=== PATIENT | male | born 1965 | race Caucasian/White ===

== ENCOUNTER 2020-05-18 10:21 | Inpatient (IN) | payer MEDICAID ==
[~2020-05-18] VITALS: Ht 180.3 cm; Wt 83.5 kg
[2020-05-18] MEDS ORDERED: HALO5TAB2 PO (12:47)
[2020-05-18] MEDS ORDERED: GABA-1181 PO (12:47)
[2020-05-18] MEDS ORDERED: QUET200T PO (12:47)
[2020-05-18] MEDS ORDERED: QUET25TA PO (12:47)
[2020-05-18] MEDS ORDERED: BENZ1TAB10 PO (12:47)
[2020-05-18] MEDS ORDERED: BUPR75 PO (12:48)
[2020-05-18 13:42] LABS: BASOPHILS % (AUTO) 0.5 % (0.0-2.0); EOSINOPHILS % (AUTO) 3.2 % (1.0-6.0); HEMATOCRIT 40.7 % (41-53); HEMOGLOBIN 13.8 g/dL (13.5-17.5); LYMPHOCYTES # (AUTO) 2.5 K/uL (1.0-4.8); LYMPHOCYTES % (AUTO) 38.8 % (22.0-44.0); MEAN CORPUSCULAR VOLUME 94 fL (80-100); MONOCYTES # (AUTO) 0.7 K/uL (0.1-1.0); NEUTROPHILS % (AUTO) 46.5 % (40.0-70.0); PLATELET COUNT (AUTO) 151 K/uL (150-450); RED BLOOD CELL COUNT(AUTO) 4.33 MIL/uL (4.50-5.90); RED CELL DISTRIBUTION WIDTH 13.1 % (11.5-14.5)
[2020-05-18 13:58] LABS: COVID AG,FIA SOURCE NASOPHARYNGEAL
[2020-05-18 14:05] LABS: AMPHET/METH SCREEN,URINE POSITIVE (NEGATIVE); BARBITURATE SCREEN, URINE NEGATIVE (NEGATIVE); BENZODIAZEPINES SCREEN,URINE NEGATIVE (NEGATIVE); CANNABINOID SCREEN,URINE POSITIVE (NEGATIVE); COCAINE SCREEN,URINE NEGATIVE (NEGATIVE); METHADONE SCREEN, URINE NEGATIVE (NEGATIVE); OPIATE SCREEN,URINE NEGATIVE (NEGATIVE)
[2020-05-18 14:08] LABS: PHENCYCLIDINE SCREEN,URINE NEGATIVE (NEGATIVE)
[2020-05-18 14:12] LABS: ANION GAP 7 mmol/L (8-16); CALCIUM, TOTAL 8.3 mg/dL (8.8-10.5); CARBON DIOXIDE 27 mmol/L (22-29); CHLORIDE 103 mmol/L (98-107); CREATININE 0.83 mg/dL (0.60-1.30); GLOMERULAR FILTR. RATE CALC > 60 mL/min (>60); GLUCOSE,RANDOM 83 mg/dL (70-110); POTASSIUM 3.3 mmol/L (3.5-5.1); SODIUM SERUM 137 mmol/L (136-145); UREA NITROGEN, BLOOD 18 mg/dL (7-18)
[2020-05-18 14:14] LABS: ALANINE AMINOTRANSFERASE 37 U/L (12-78); ALBUMIN 3.8 g/dL (3.4-5.0); ALKALINE PHOSPHATASE 75 U/L (46-116); ASPARTATE AMINOTRANSFERASE 42 U/L (15-37); BILIRUBIN,TOTAL 0.8 mg/dL (0.1-1.0); TOTAL PROTEIN, SERUM 7.4 g/dL (6.4-8.2)
[2020-05-18] MEDS ORDERED: ZOLPIDEM TARTRATE 10 MG TABLET PO PRN (17:45)
[2020-05-18] MEDS ORDERED: HALOPERIDOL 5 MG TABLET PO PRN (17:45)
[2020-05-18] MEDS ORDERED: LORazepam 2 MG TABLET PO PRN (17:45)
[2020-05-18 17:59] VITALS: BP 134/66
[2020-05-18] MEDS ORDERED: POTASSIUM CHLORIDE 20 MEQ ER TABLET PO ONE (18:00)
[2020-05-19] MEDS ORDERED: GuaiFENesin/D-METHORPHAN [SUGAR-FREE] 200-20MG/10 ML SYRUP UDCUP PO PRN (08:00)
[2020-05-19] MEDS ORDERED: ACETAMINOPHEN 325 MG TABLET PO PRN (08:00)
[2020-05-19] MEDS ORDERED: CloNIDine HCL 0.1 MG TABLET PO PRN (08:00)
[2020-05-19] MEDS ORDERED: MAGNESIUM HYDROXIDE SUSPENSION 30 ML UDCUP PO PRN (08:00)
[2020-05-19] MEDS ORDERED: PETROLATUM,WHITE 28 GM JELLY TP PRN (08:00)
[2020-05-19] MEDS ORDERED: ONDANSETRON HCL 4 MG TABLET PO PRN (08:00)
[2020-05-19] MEDS ORDERED: ALBUTEROL SULFATE HFA 90 MCG/PUFF 8 GM INHALER IH PRN (08:00)
[2020-05-19] MEDS ORDERED: DOCUSATE SODIUM 100 MG CAPSULE PO PRN (08:00)
[2020-05-19] MEDS ORDERED: NICOTINE 14 MG/24 HOUR PATCH TD PRN (08:00)
[2020-05-19] MEDS ORDERED: MAG HYDROX/AL HYDROX/SIMETH ES 30 ML SUSPENSION UDCUP PO PRN (08:00)
[2020-05-19] MEDS ORDERED: IBUPROFEN 400 MG TABLET PO PRN (08:00)
[2020-05-19 08:43] VITALS: BP 115/72
[2020-05-19] MEDS: NICOTINE 14 MG/24 HOUR PATCH TD SCH (09:18)
[2020-05-19 16:00] VITALS: BP 106/68
[2020-05-19] MEDS: QUEtiapine FUMARATE 25 MG TABLET PO SCH (16:35)
[2020-05-19] MEDS: BENZTROPINE MESYLATE 1 MG TABLET PO SCH (16:35)
[2020-05-19] MEDS: GABAPENTIN 300 MG CAPSULE PO SCH (16:35)
[2020-05-19] MEDS: QUEtiapine FUMARATE 200 MG TABLET PO SCH (20:23)
[2020-05-20 10:35] VITALS: BP 109/80
[2020-05-20] MEDS: QUEtiapine FUMARATE 25 MG TABLET PO SCH ×2 (10:58→16:19)
[2020-05-20] MEDS: GABAPENTIN 300 MG CAPSULE PO SCH ×2 (10:58→16:19)
[2020-05-20] MEDS: BuPROPion HCL XL 150 MG ER TABLET PO SCH (10:58)
[2020-05-20] MEDS: BENZTROPINE MESYLATE 1 MG TABLET PO SCH ×2 (10:58→16:20)
[2020-05-20] MEDS: NICOTINE 14 MG/24 HOUR PATCH TD SCH (10:59)
[2020-05-20 16:00] VITALS: BP 110/77
[2020-05-20] MEDS: QUEtiapine FUMARATE 200 MG TABLET PO SCH (20:16)
[2020-05-21 08:00] VITALS: BP 123/84
[2020-05-21] MEDS: GABAPENTIN 300 MG CAPSULE PO SCH ×2 (11:13→16:23)
[2020-05-21] MEDS: BENZTROPINE MESYLATE 1 MG TABLET PO SCH ×2 (11:13→16:23)
[2020-05-21] MEDS: QUEtiapine FUMARATE 25 MG TABLET PO SCH ×2 (11:13→16:23)
[2020-05-21] MEDS: NICOTINE 14 MG/24 HOUR PATCH TD SCH (11:14)
[2020-05-21] MEDS: BuPROPion HCL XL 150 MG ER TABLET PO SCH (11:14)
[2020-05-21 16:00] VITALS: BP 107/80
[2020-05-21] MEDS: QUEtiapine FUMARATE 200 MG TABLET PO SCH (20:33)
[2020-05-22 08:00] VITALS: BP 121/83
[2020-05-22] MEDS: GABAPENTIN 300 MG CAPSULE PO SCH ×2 (08:44→16:06)
[2020-05-22] MEDS: BENZTROPINE MESYLATE 1 MG TABLET PO SCH ×2 (08:44→16:06)
[2020-05-22] MEDS: QUEtiapine FUMARATE 25 MG TABLET PO SCH ×2 (08:45→16:06)
[2020-05-22] MEDS: BuPROPion HCL XL 150 MG ER TABLET PO SCH (08:45)
[2020-05-22] MEDS: NICOTINE 14 MG/24 HOUR PATCH TD SCH (08:46)
[2020-05-22 16:05] VITALS: BP 101/72
[2020-05-22] MEDS: QUEtiapine FUMARATE 200 MG TABLET PO SCH (20:49)
[2020-05-23 08:00] VITALS: BP 115/77
[2020-05-23] MEDS: QUEtiapine FUMARATE 25 MG TABLET PO SCH ×2 (08:38→16:52)
[2020-05-23] MEDS: NICOTINE 14 MG/24 HOUR PATCH TD SCH (08:39)
[2020-05-23] MEDS: BuPROPion HCL XL 150 MG ER TABLET PO SCH (08:39)
[2020-05-23] MEDS: GABAPENTIN 300 MG CAPSULE PO SCH ×2 (08:39→16:51)
[2020-05-23] MEDS: BENZTROPINE MESYLATE 1 MG TABLET PO SCH ×2 (08:40→16:51)
[2020-05-23 16:36] VITALS: BP 113/86
[2020-05-23] MEDS: QUEtiapine FUMARATE 200 MG TABLET PO SCH (20:19)
[2020-05-24 08:13] VITALS: BP 116/82
[2020-05-24] MEDS: BuPROPion HCL XL 150 MG ER TABLET PO SCH (10:45)
[2020-05-24] MEDS: GABAPENTIN 300 MG CAPSULE PO SCH ×2 (10:45→15:52)
[2020-05-24] MEDS: BENZTROPINE MESYLATE 1 MG TABLET PO SCH ×2 (10:45→15:52)
[2020-05-24] MEDS: QUEtiapine FUMARATE 25 MG TABLET PO SCH ×2 (10:46→15:52)
[2020-05-24] MEDS: NICOTINE 14 MG/24 HOUR PATCH TD SCH (10:49)
[2020-05-24 12:16] LABS: COVID AG,FIA SOURCE NASOPHARYNGEAL
[2020-05-24] MEDS: LOPERAMIDE HCL 2 MG CAPSULE PO PRN (15:52)
[2020-05-24 16:00] VITALS: BP 120/90
[2020-05-24] MEDS: QUEtiapine FUMARATE 200 MG TABLET PO SCH (20:28)
[2020-05-25] MEDS: QUEtiapine FUMARATE 25 MG TABLET PO SCH ×2 (08:01→16:12)
[2020-05-25] MEDS: GABAPENTIN 300 MG CAPSULE PO SCH ×2 (08:01→16:12)
[2020-05-25] MEDS: BuPROPion HCL XL 150 MG ER TABLET PO SCH (08:01)
[2020-05-25] MEDS: BENZTROPINE MESYLATE 1 MG TABLET PO SCH ×2 (08:01→16:12)
[2020-05-25] MEDS: NICOTINE 14 MG/24 HOUR PATCH TD SCH (08:02)
[2020-05-25 08:46] VITALS: BP 131/86
[2020-05-25 16:00] VITALS: BP 127/89
[2020-05-25 16:10] VITALS: BP 127/89
[2020-05-25] MEDS: LOPERAMIDE HCL 2 MG CAPSULE PO PRN (16:14)
[2020-05-25 16:58] LABS: COVID AG,FIA SOURCE NASOPHARYNGEAL
[2020-05-25] MEDS: QUEtiapine FUMARATE 200 MG TABLET PO SCH (20:31)
[2020-05-26] MEDS: BENZTROPINE MESYLATE 1 MG TABLET PO SCH (08:30)
[2020-05-26] MEDS: BuPROPion HCL XL 150 MG ER TABLET PO SCH (08:30)
[2020-05-26] MEDS: QUEtiapine FUMARATE 25 MG TABLET PO SCH (08:30)
[2020-05-26] MEDS: GABAPENTIN 300 MG CAPSULE PO SCH (08:30)
[2020-05-26] MEDS: NICOTINE 14 MG/24 HOUR PATCH TD SCH (08:31)
[2020-05-26] MEDS: LOPERAMIDE HCL 2 MG CAPSULE PO PRN ×2 (08:33→12:27)
[2020-05-26 09:43] VITALS: BP 99/78
[2020-05-26] MEDS ORDERED: BUPR-93 PO (12:48)
[2020-05-26] MEDS ORDERED: QUET25TA PO (12:49)
== END 2020-05-26 14:00 | disposition home or self-care (01) | DRG 750 ==
LOC: EMS 10:27 → 3EI 15:44 → 3EX 05-25 21:31
PROVIDERS: ADMIT Psychiatry & Neurology Psychiatry; ATTEND Psychiatry & Neurology Psychiatry
DX: F25.1 Schizoaffective disorder, depressive type (principal); R45.851 Suicidal ideations; F15.10 Other stimulant abuse, uncomplicated; F12.10 Cannabis abuse, uncomplicated; Z79.899 Other long term (current) drug therapy; Z91.5 Personal history of self-harm; Z59.0 Homelessness; F43.10 Post-traumatic stress disorder, unspecified; F90.9 Attention-deficit hyperactivity disorder, unspecified type; R74.01 Elevation of levels of liver transaminase levels; E87.6 Hypokalemia; D72.829 Elevated white blood cell count, unspecified; F17.210 Nicotine dependence, cigarettes, uncomplicated; R73.9 Hyperglycemia, unspecified; E78.5 Hyperlipidemia, unspecified; E66.9 Obesity, unspecified; Z68.25 Body mass index [BMI] 25.0-25.9, adult; D64.9 Anemia, unspecified; Z20.828 Contact with and (suspected) exposure to other viral communicable diseases
CPT/HCPCS: 84132; 87426; G0378; G0480